=== PATIENT | female | born 1985 | race Caucasian/White ===

== ENCOUNTER 2016-10-02 06:24 | Day surgery (SDC) | payer OTHER ==
[2016-09-27 12:16] VITALS: BMI 19.8
[2016-10-02] MEDS ORDERED: PROPOFOL 20 ML ONE ×2 (07:06)
[2016-10-02] MEDS ORDERED: LIDOCAINE HCL/PF 2% SDV 5ML VIAL ONE (07:06)
[2016-10-02] MEDS ORDERED: SUCCINYLCHOLINE CHLORIDE 200 MG/10 ML VIAL ONE (07:06)
[2016-10-02] MEDS ORDERED: LIDOCAINE HCL 2% (20ML MULTI-DOSE VIAL) NR ONE (07:10)
[2016-10-02] MEDS ORDERED: MIDAZOLAM HCL 2 MG/2 ML SINGLE DOSE VIAL ONE (07:28)
[2016-10-02] MEDS ORDERED: ONDANSETRON 4 MG/2 ML VIAL ONE (07:46)
[2016-10-02] MEDS ORDERED: KETOROLAC TROMETHAMINE 30 MG/1 ML VIAL ONE (07:46)
[2016-10-02 09:07] VITALS: PULSE 62
[2016-10-02 09:10] VITALS: BP 96/55; TEMP 98.8
[2016-10-02] MEDS ORDERED: ACETAMINOPHEN 325 MG TABLET (FP) PO PRN (09:11)
[2016-10-02] MEDS ORDERED: oxyCODONE HCL 5 MG TABLET PO PRN (09:11)
[2016-10-02] MEDS ORDERED: ONDANSETRON 4 MG/2 ML VIAL IVPUSH PRN (09:11)
[2016-10-02] MEDS ORDERED: LACTATED RINGERS SOLUTION 1,000 ML IV SCH (09:15)
--- NOTE | 2016-10-02 20:30 | OP ---
DATE OF OPERATION: 10/02/2016 PREOPERATIVE DIAGNOSIS: Left arm mass. POSTOPERATIVE DIAGNOSIS: Left arm mass. OPERATIVE PROCEDURE: Left arm mass excision. SURGEON: Tres Quintana M.D. ANESTHESIA: Local with sedation. COMPLICATIONS: None. ESTIMATED BLOOD LOSS: Minimal. INDICATION FOR PROCEDURE: The patient is a 31-year-old female with the above findings indicated for operative treatment. Risks, benefits, and alternatives were discussed with patient at length, informed consent was obtained. PROCEDURE: After proper identification of the patient and correct operative site, patient was brought to the operating room and placed supine on the table, all bony prominences well padded. Sedation was given by the anesthesiologist, local anesthesia given 2% lidocaine. Left upper extremity was prepped and draped in the usual sterile fashion. Well padded tourniquet was placed with a sterile prep. Esmarch bandage to exsanguinate the left upper extremity. Tourniquet inflated to 250 mmHg. A chris-Nahomy incision was made over the volar aspect of his left thumb. The incision was sharp through the skin, blunt and sharp dissection of subcutaneous tissues. Neurovascular structures were carefully identified and protected. Mass was found to have a cystic structure emanating from the flexor tendon sheath, it was excised in whole and sent for pathologic evaluation. Wound was irrigated with saline and repaired with a 5-0 nylon suture. A sterile dressing was applied. The patient was reversed from anesthesia and brought to the recovery room in stable condition. She tolerated the procedure well. TRES QUINTANA M.D. CANDIDA/[id number]
--- NOTE | 2016-10-03 13:37 | PATH ---
Surgical Pathology Report Patient Name: GARY GONCALVES [facility]. Rec. #: [id number] /Age/Gender: 1985 (Age: 31) / F Account: [id number] Location: [facility] Taken: 10/02/2016 Received: 10/02/2016 Reported: 10/03/2016 Physicians: Miguel Valderrama M.D. Specimen(s) Received LEFT THUMB MASS Clinical History Left thumb mass Final Diagnosis SOFT TISSUE, LEFT THUMB, EXCISION: GANGLION CYST. Electronically Signed Jamison Nguyen M.D. Gross Description Received in formalin labeled "left thumb mass," is a 1.0 x 0.5 x 0.2 cm hampton, irregular portion of soft tissue which is submitted in toto in one cassette. /10/02/201610/02/2016
== END 2016-10-02 09:11 | disposition home or self-care (01) ==
LOC: FASU 06:24
PROVIDERS: ATTEND Orthopaedic Surgery Hand Surgery
PROC: 0JBK0ZX Excision of Left Hand Subcutaneous Tissue and Fascia, Open Approach, Diagnostic (ICD-10-PCS; principal; 2016-10-02 07:45)
DX: M67.48 Ganglion, other site (principal)
CPT/HCPCS: 84703; 88304-TC